=== PATIENT | female | born 1965 | race Caucasian/White ===

== ENCOUNTER 2017-07-22 13:03 | Emergency (ER) | payer OTHER ==
[~2017-07-22] VITALS: Ht 170.2 cm; Wt 109.3 kg
[2017-07-22] MEDS ORDERED: MAXALT10 MG PO (13:22)
[2017-07-22] MEDS ORDERED: ZESTRIL10 MG PO (13:22)
[2017-07-22] MEDS ORDERED: ONDANSETRON ODT8 MG PO (16:18)
[2017-07-22] MEDS ORDERED: NORCO 5-325 TA1 EACH PO (16:18)
== END 2017-07-22 16:24 | disposition home or self-care (01) ==
LOC: ED 13:03
DX: K52.9 Noninfective gastroenteritis and colitis, unspecified (principal); G43.909 Migraine, unspecified, not intractable, without status migrainosus; I10 Essential (primary) hypertension; Z88.0 Allergy status to penicillin; Z88.8 Allergy status to other drugs, medicaments and biological substances; Z79.899 Other long term (current) drug therapy
CPT/HCPCS: 80053; 81001; 85025; 87045; 87046; 87077; 87493; 96374; 99283; J2405; J7030